=== PATIENT | female | born 1985 | race Two or more races ===

== ENCOUNTER 2020-03-19 11:27 | Emergency (ER) | payer SELFPAY ==
[~2020-03-19] VITALS: Ht 167.6 cm; Wt 65.3 kg
[2020-03-19 11:32] VITALS: BP 129/83
== END 2020-03-19 12:06 | disposition home or self-care (01) ==
LOC: ER 11:27
DX: R05 Cough (principal)
CPT/HCPCS: 71045

== ENCOUNTER 2021-03-18 02:00 | Emergency (ER) | payer SELFPAY ==
[~2021-03-18] VITALS: Ht 154.9 cm; Wt 63.5 kg
[2021-03-18 02:58] LABS: Basophils # (auto) 0 10 ^3/uL (0-0.2); Basophils % (auto) 0.4 % (0.0-2.0); Eosinophils # (auto) 0.2 10 ^3/uL (0-0.8); Eosinophils % (auto) 1.4 % (0.0-7.0); Hematocrit 44.4 % (36.0-46.0); Hemoglobin 14.9 g/dL (12.2-16.2); Lymphocytes # (auto) 3.3 10 ^3/uL (0.4-5.4); Lymphocytes % (auto) 28.8 % (10.0-50.0); Mean Corpuscular Hemoglobin 29.6 pg (28.0-32.0); Mean Corpuscular Hgb Conc. 33.5 g/dL (32.0-36.0); Mean Corpuscular Volume 88.2 fL (80.0-100.0); Monocytes # (auto) 0.8 10 ^3/uL (0-1.3); Monocytes % (auto) 7.1 % (0.0-12.0); Neutrophils % (auto) 62.3 % (37.0-80.0); Red Blood Cells 5.03 10^6/uL (4.0-5.20); Red Cell Distribution Width 13.5 % (11.8-14.3); White Blood Cell 11.3 10^3/uL (4.4-10.8)
[2021-03-18 03:18] LABS: Anion Gap 5 (5-15); Blood Urea Nitrogen 9 mg/dL (7-18); Calcium 8.8 mg/dL (8.5-10.1); Carbon Dioxide 27 mmol/L (21-32); Chloride 105 mmol/L (98-107); Glucose 97 mg/dL (74-106); Potassium 3.6 mmol/L (3.5-5.1); Sodium 137 mmol/L (136-145)
[2021-03-18 03:22] LABS: Alanine Aminotransferase 26 U/L (13-56); Alkaline Phosphatase 65 U/L (45-117); Aspartate Aminotransferase 13 U/L (15-37); BUN/Creatinine Ratio 10.3; Bilirubin, Total 0.6 mg/dL (0.2-1.0); GFR African American 96 mL/min; GFR Non-African American 79 mL/min; Total Protein 8.2 g/dL (6.4-8.2)
[2021-03-18 03:29] LABS: Urine Bacteria NONE SEEN /hpf (None Seen); Urine Blood Negative /uL (Negative); Urine Specific Gravity 1.003 (1.001-1.035); Urine WBC 4 /hpf (0 - 5)
[2021-03-18 06:00] VITALS: BP 100/70
== END 2021-03-18 06:39 | disposition home or self-care (01) ==
LOC: ER 02:03
DX: R07.89 Other chest pain (principal); T43.625A Adverse effect of amphetamines, initial encounter; Z32.02 Encounter for pregnancy test, result negative; Y92.89 Other specified places as the place of occurrence of the external cause
CPT/HCPCS: 36415; 71045; 80053; 81001; 81025; 83880; 84484; 85025; 93005